=== PATIENT | male | born 1960 | race Caucasian/White ===

== ENCOUNTER 2024-12-23 07:58 | Inpatient (IN) | payer OTHER ==
[~2024-12-23] VITALS: Ht 165.1 cm; Wt 64.1 kg
[2024-12-23] VITALS (24 sets, daily range): BP systolic 69–104; BP diastolic 49–80
[2024-12-23] MEDS ORDERED: NS 1,000 ML IV SCH (08:30)
[2024-12-23] MEDS ORDERED: Ondansetron HCl 2 MG / ML 2ML Vial IV ONE (08:30)
[2024-12-23] MEDS ORDERED: Folic Acid 1 MG TAB PO ONE (08:30)
[2024-12-23 08:40] LABS: BASOPHILS ABSOLUTE AUTO 0.01 K/mm3 (0.00-0.23); BASOPHILS PERCENT AUTO 0 % (0-2); EOSINOPHILS ABSOLUTE AUTO 0.03 K/mm3 (0.00-0.68); EOSINOPHILS PERCENT AUTO 0 % (0-6); Hematocrit 27.7 % (37.0-53.0); Hemoglobin 10.2 g/dL (13.5-17.5); IMMATURE GRAN ABSOLUTE AUTO 0.08 K/mm3 (0.00-0.10); IMMATURE GRAN PERCENT AUTO 1 % (0-1); LYMPHOCYTES ABSOLUTE AUTO 1.48 K/mm3 (0.84-5.20); LYMPHOCYTES PERCENT AUTO 13 % (21-46); MONOCYTES ABSOLUTE AUTO 0.49 K/mm3 (0.16-1.47); MONOCYTES PERCENT AUTO 4 % (4-13); Mean Corpuscular HGB Conc 36.8 g/dL (31.5-36.5); Mean Corpuscular Volume 85 fL (80-100); NEUTROPHILS ABSOLUTE AUTO 9.42 K/mm3 (1.96-9.15); NEUTROPHILS PERCENT AUTO 82 % (41-73); NRBC ABSOLUTE 0.10 K/mm3 (0.00-0.02); NRBC Auto 0.9 /100 WBC (0.0-0.2); Platelet Count 317 K/mm3 (150-400); RDW Coefficient Variation 14.1 % (11.7-14.2); RDW Standard Deviation 40.8 fL (35.1-46.3)
[2024-12-23 09:23] LABS: Ethanol (Alcohol), Blood, Med 5.0 mg/dL; Magnesium, Blood 1.4 mg/dL (1.6-2.4)
[2024-12-23 09:26] LABS: Alanine Aminotransfer (ALT/SGP 16.0 U/L (12-78); Albumin, Blood 2.1 g/dL (3.4-5.0); Albumin/Globulin Ratio 0.4 (0.8-1.8); Anion Gap 15.0 mmol/L (3-11); Aspartate Aminotrans (AST/SGOT 51.0 U/L (12-37); Bilirubin, Total 1.6 mg/dL (0.1-1.0); Blood Urea Nitrogen 10.0 mg/dL (8-24); CO2, Blood 31.0 mmol/L (21-32); Calcium, Blood 7.8 mg/dL (8.5-10.1); Chloride, Blood 71.0 mmol/L (98-108); Creatinine, Blood 0.45 mg/dL (0.60-1.20); Globulin, Blood 5.3 g/dL (2.2-4.0); Glucose, Blood 137.0 mg/dL (70-99); Phosphorus, Blood 2.8 mg/dL (2.5-4.9); Potassium, Blood 2.5 mmol/L (3.5-5.5); Sodium, Blood 114.0 mmol/L (136-145); Total Protein, Blood 7.4 g/dL (6.4-8.2)
[2024-12-23] MEDS ORDERED: Magnesium Sulf 2 GM/Water 50ML 50 ML IV ONE (10:00)
[2024-12-23] MEDS ORDERED: Diazepam 5 MG / ML 2ML SYR IV PRN (11:30)
[2024-12-23] MEDS ORDERED: Ondansetron HCl 2 MG / ML 2ML Vial IV PRN (11:30)
[2024-12-23 11:54] LABS: Prothrombin Time Results 14.0 Sec (9.7-11.5)
[2024-12-23] MEDS ORDERED: NS 500 ML IV SCH (15:10)
[2024-12-23 20:26] LABS: Potassium, Blood 2.9 mmol/L (3.5-5.5)
[2024-12-23 20:27] LABS: Sodium, Blood 118.0 mmol/L (136-145)
[2024-12-23 21:48] LABS: Anion Gap 7.0 mmol/L (3-11); Blood Urea Nitrogen 8.0 mg/dL (8-24); CO2, Blood 32.0 mmol/L (21-32); Calcium, Blood 7.3 mg/dL (8.5-10.1); Chloride, Blood 85.0 mmol/L (98-108); Creatinine, Blood 0.36 mg/dL (0.60-1.20); Glucose, Blood 122.0 mg/dL (70-99); Potassium, Blood 3.0 mmol/L (3.5-5.5); Sodium, Blood 121.0 mmol/L (136-145)
--- NOTE | 2024-12-23 22:30 | NUR ---
TRANSFERED GAVE REPORT TO MICKEY @1820 AND TRANSFERED PATIENT @2220 TO ROOM 311 ON MEDICAL FLOOR.
[2024-12-24] VITALS (37 sets, daily range): BP systolic 75–126; BP diastolic 52–88
[2024-12-24] MEDS ORDERED: D5W-1/2NS 1,000 ML IV SCH (00:10)
[2024-12-24 02:38] LABS: Anion Gap 8.0 mmol/L (3-11); Blood Urea Nitrogen 7.0 mg/dL (8-24); CO2, Blood 33.0 mmol/L (21-32); Calcium, Blood 7.1 mg/dL (8.5-10.1); Chloride, Blood 87.0 mmol/L (98-108); Creatinine, Blood 0.33 mg/dL (0.60-1.20); Glucose, Blood 157.0 mg/dL (70-99); Potassium, Blood 2.8 mmol/L (3.5-5.5); Sodium, Blood 125.0 mmol/L (136-145)
[2024-12-24] MEDS ORDERED: Potassium Chl 20MEQ/Water100ML 100 ML IV STA (03:29)
[2024-12-24 05:25] LABS: BASOPHILS ABSOLUTE AUTO 0.01 K/mm3 (0.00-0.23); BASOPHILS PERCENT AUTO 0 % (0-2); EOSINOPHILS ABSOLUTE AUTO 0.04 K/mm3 (0.00-0.68); EOSINOPHILS PERCENT AUTO 1 % (0-6); Hematocrit 24.2 % (37.0-53.0); Hemoglobin 8.4 g/dL (13.5-17.5); IMMATURE GRAN ABSOLUTE AUTO 0.02 K/mm3 (0.00-0.10); IMMATURE GRAN PERCENT AUTO 0 % (0-1); LYMPHOCYTES ABSOLUTE AUTO 1.63 K/mm3 (0.84-5.20); LYMPHOCYTES PERCENT AUTO 19 % (21-46); MONOCYTES ABSOLUTE AUTO 0.50 K/mm3 (0.16-1.47); MONOCYTES PERCENT AUTO 6 % (4-13); Mean Corpuscular HGB Conc 34.7 g/dL (31.5-36.5); NEUTROPHILS ABSOLUTE AUTO 6.58 K/mm3 (1.96-9.15); NEUTROPHILS PERCENT AUTO 75 % (41-73); NRBC ABSOLUTE 0.03 K/mm3 (0.00-0.02); NRBC Auto 0.3 /100 WBC (0.0-0.2); Platelet Count 217 K/mm3 (150-400); RDW Coefficient Variation 14.3 % (11.7-14.2); RDW Standard Deviation 43.4 fL (35.1-46.3)
[2024-12-24 05:35] LABS: Mean Corpuscular Volume 90 fL (80-100)
[2024-12-24 05:38] LABS: Alanine Aminotransfer (ALT/SGP 15.0 U/L (12-78); Albumin, Blood 1.5 g/dL (3.4-5.0); Albumin/Globulin Ratio 0.4 (0.8-1.8); Anion Gap 8.0 mmol/L (3-11); Aspartate Aminotrans (AST/SGOT 56.0 U/L (12-37); Bilirubin, Total 0.6 mg/dL (0.1-1.0); Blood Urea Nitrogen 7.0 mg/dL (8-24); CO2, Blood 28.0 mmol/L (21-32); Calcium, Blood 6.9 mg/dL (8.5-10.1); Chloride, Blood 89.0 mmol/L (98-108); Creatinine, Blood 0.31 mg/dL (0.60-1.20); Globulin, Blood 4.2 g/dL (2.2-4.0); Glucose, Blood 168.0 mg/dL (70-99); Potassium, Blood 3.4 mmol/L (3.5-5.5); Sodium, Blood 122.0 mmol/L (136-145); Total Protein, Blood 5.7 g/dL (6.4-8.2)
--- NOTE | 2024-12-24 05:45 | NUR ---
SHIFT SUMMARY PATIENT SLEPT THORUGH SHIFT. PATIENT NEEDS ENCOURAGEMENT AND REMINDERS TO DRINK FLUID AND REPOSITION HIMSELF. A&O X3 SLOW TO RESPONSED TO QUESTIONS ASKED BY NURSE. WEAK AND BED REST PATIENT DID NOT AMBULATE ON SHIFT. HR IN THE 70'S AND SBP 70-80'S WITH A MAP IN THE 60'S DR. VERNON AWARE WANTS MAP ABOVE 60 PATIENT HAS 2L OF O2 VIA NASAL CANULA ON WHEN SLEEPING. PATIENT HAS PUREWICK APPLIED HOOKED TO SUCTION, URINE IS SU COLORED. HAS RIGHT WRIST AND LEFT FOREARM IV'S. CALL LIGHT WITHIN REACH.
[2024-12-24] MEDS ORDERED: Enoxaparin 40 MG/0.4 ML SYR SC SCH (09:00)
[2024-12-24] MEDS ORDERED: Thiamine HCl 300 MG in NS 100 ML IV SCH (09:14)
[2024-12-24 09:42] LABS: Stool Occult Blood Guaiac 1 Neg (Neg)
[2024-12-24 10:28] LABS: Anion Gap 3.0 mmol/L (3-11); Blood Urea Nitrogen 6.0 mg/dL (8-24); CO2, Blood 32.0 mmol/L (21-32); Calcium, Blood 8.4 mg/dL (8.5-10.1); Chloride, Blood 89.0 mmol/L (98-108); Creatinine, Blood 0.39 mg/dL (0.60-1.20); Glucose, Blood 141.0 mg/dL (70-99); Magnesium, Blood 2.1 mg/dL (1.6-2.4); Potassium, Blood 3.4 mmol/L (3.5-5.5); Sodium, Blood 121.0 mmol/L (136-145)
--- NOTE | 2024-12-24 18:45 | NUR ---
Patient transfered to ICU status overnight due to low blood pressures. In review this morning Dr Schroeder transfered patient back to PCU status, Dr Schroeder accepts low blood pressure that patient is not presenting mental status changes with the accompanying reading. Patient was able to get OOB to chair with one staff assist, however, displayed weak core strength and weak stance. Patient encouraged to eat. Remains unsympomatic of S/S of withdrawal. 2 liters of LR ordered to address hypotension and hydration without risking rapid correction of sodium.
[2024-12-25] VITALS (11 sets, daily range): BP systolic 83–145; BP diastolic 56–91
--- NOTE | 2024-12-25 02:55 | NUR ---
PT TRANSFERED TP PCU 01. REPORT GIVEN TO [facility]. PT ALERT AND ORIENTED TO SELF, PERSON AND PLACE BUT FORGETFULL. NO C/O PAIN. CIWA SCORE 1. PT WAS BLADDER SCANNED AT 2100. BLADDER SCAN VOLUME WAS 170MLS. B/P SOFT, MAP GREATER THAN 65. ON RA SATTING GREATER THAN 94%.
[2024-12-25 03:33] LABS: BASOPHILS ABSOLUTE AUTO 0.05 K/mm3 (0.00-0.23); BASOPHILS PERCENT AUTO 1 % (0-2); EOSINOPHILS ABSOLUTE AUTO 0.15 K/mm3 (0.00-0.68); EOSINOPHILS PERCENT AUTO 1 % (0-6); Hematocrit 26.5 % (37.0-53.0); Hemoglobin 8.8 g/dL (13.5-17.5); IMMATURE GRAN ABSOLUTE AUTO 0.08 K/mm3 (0.00-0.10); IMMATURE GRAN PERCENT AUTO 1 % (0-1); LYMPHOCYTES ABSOLUTE AUTO 2.85 K/mm3 (0.84-5.20); LYMPHOCYTES PERCENT AUTO 26 % (21-46); MONOCYTES ABSOLUTE AUTO 0.71 K/mm3 (0.16-1.47); MONOCYTES PERCENT AUTO 6 % (4-13); Mean Corpuscular HGB Conc 33.2 g/dL (31.5-36.5); Mean Corpuscular Volume 94 fL (80-100); NEUTROPHILS ABSOLUTE AUTO 7.24 K/mm3 (1.96-9.15); NEUTROPHILS PERCENT AUTO 65 % (41-73); NRBC ABSOLUTE 0.03 K/mm3 (0.00-0.02); NRBC Auto 0.3 /100 WBC (0.0-0.2); Platelet Count 233 K/mm3 (150-400); RDW Coefficient Variation 14.6 % (11.7-14.2); RDW Standard Deviation 47.2 fL (35.1-46.3)
[2024-12-25 03:56] LABS: Alanine Aminotransfer (ALT/SGP 16.0 U/L (12-78); Albumin, Blood 1.7 g/dL (3.4-5.0); Albumin/Globulin Ratio 0.4 (0.8-1.8); Anion Gap 6.0 mmol/L (3-11); Aspartate Aminotrans (AST/SGOT 59.0 U/L (12-37); Bilirubin, Total 0.5 mg/dL (0.1-1.0); Blood Urea Nitrogen 4.0 mg/dL (8-24); CO2, Blood 30.0 mmol/L (21-32); Calcium, Blood 8.2 mg/dL (8.5-10.1); Chloride, Blood 95.0 mmol/L (98-108); Creatinine, Blood 0.31 mg/dL (0.60-1.20); Globulin, Blood 4.3 g/dL (2.2-4.0); Glucose, Blood 124.0 mg/dL (70-99); Potassium, Blood 4.3 mmol/L (3.5-5.5); Sodium, Blood 127.0 mmol/L (136-145); Total Protein, Blood 6.0 g/dL (6.4-8.2)
--- NOTE | 2024-12-25 04:31 | NUR ---
SHIFT SUMMARY. PT ARRIVED ON UNIT @ ~0235. AOX3, COOPERATIVE, ABLE TO MAKE NEEDS KNOWN. HAS BEEN RESTING COMFORTABLY SINCE ARRIVAL. HAS HAD 2 INCONTINENT VOIDS SINCE ARRIVAL, BLADDER SCAN REVEALED VOLUME OF 250 MLS. FLUIDS INFUSING SINCE ARRIVAL. VITALS STABLE, MAP >65 THUS FAR, RUNNING SINUS ON TELE WITH RATE IN THE 70s-80s. HAS BEEN ON ROOM AIR SINCE ARRIVAL. BEDREST. DENIED PAIN. VERY SLOW TO RESPOND, SOMEWHAT FORGETFUL BUT ABLE TO CARRY APPROPRIATE CONVERSATION AND FOLLOW COMMANDS APPROPRIATELY. BED LOCKED IN LOWEST POSITION. BED ALARM ACTIVE FOR SAFETY. CALL LIGHT WITHIN REACH.
--- NOTE | 2024-12-25 11:27 | NUR ---
MID SHIFT UPDATE PATIENT WAS INITIALLY IN BED THIS MORNING ASLEEP. HE WAS AROUSABLE TO VERBAL STIMULATION. PATIENT WAS NOT VERY TALKATIVE AND WAITED SEVERAL SECONDS TO RESPOND TO ANY QUESTIONS, SOMETIMES NOT ANSWERING AT ALL. PATIENT WAS ABLE TO TAKE ALL HIS MEDICATIONS WITH WATER. NO COMPLAINTS OF PAIN OR RESP DISTRESS. VITALS STABLE. PATIENT WORKED WITH OCCUPATIONAL THERAPY AND WAS ABLE TO BRUSH HIS OWN TEETH. PATIENT TRANSFERRED FROM BED TO CHAIR WITH CHAIR ALARM IN PLACE. PATIENT WAS ABLE TO VOID INTO BSC APPROX 200ML SU URINE. PATIENT IS VERY UNSTEADY ON HIS FEET, WHICH SEEMED D/T BALANCE ISSUES. PATIENT COOPERATIVE WITH ALL CARE. PATIENT'S BROTHER, NAVDEEP SOLOMON, VISTED PATIENT. HE IS FROM [place], PHONE [phone] / [phone]. HE WAS SUPPORTIVE AND ENCOURAGING TOWARDS HIS BROTHER AND LEFT AFTER ABOUT 45 MINUTES. HE REPORTS PATIENT WAS AMBULATORY AND INDEPENDENT A FEW MONTHS AGO LAST TIME HE SAW HIM. THEIR MOTHER RECENTLY, AND THE PATIENT LIVED WITH HER IN A MOBILE HOME. HE BELIEVES THAT JOEY HAS BEEN "DRINKING HIMSELF TO ." HE SAYS HE HAS NEVER SEEN HIM IN THIS CONDITION AND HIS MENTAL STATUS IS NOT HIS BASELINE. DR CABRAL EVALUATED PATIENT, CHANGED TO MEDICAL STATUS WITHOUT TELE. PATIENT STILL IN BED AND TAKING A NAP.
--- NOTE | 2024-12-25 15:56 | NUR ---
PATIENT HAS VOIDED TOTAL OF 50-60ML URINE. BLADDER SCAN DONE - 338ML. PATIENT HAS ONLY WANTED TO DRINK SMALL SIPS OF WATER THIS SHIFT. PROVIDER NOTIFIED. RECEIVED ORDER TO START LR @ 75ML/HR AND TAMSULOSIN 0.4MG PO AT BEDTIME.
--- NOTE | 2024-12-25 16:15 | NUR ---
TRANSFER NOTE REPORT GIVEN TO CALIXTO RN ON MEDICAL FLOOR. PATIENT TRANSFERRED TO 337. MENTAL STATUS UNCHANGED. NO SIGNIFICANT EVENTS OCCURED THIS SHIFT. PATIENT REMAINED DROWSY MOST OF SHIFT BUT WAS RESPONSIVE TO VERBAL STIMULI. NO REPORTS OF PAIN OR SOB.
--- NOTE | 2024-12-25 16:53 | NUR ---
TRANSFER NOTE PT TRANSFERRED FROM PCU, REPORT RECEIVED FROM ELYSE WILDE. FLUIDS STARTED PER THE EMAR. PT HAD AN INCONTINENT VOID. BRIEF IN PLACE AND CHANGED NEEDED. CALL LIGHT PUT WITHIN REACH. BA ON AND IN THE LOWEST POSITION. FAMILY IS CURRENTLY AT THE BS.
[2024-12-26 04:19] VITALS: BP 111/77
--- NOTE | 2024-12-26 06:37 | NUR ---
AWAKE BUT SLIGHTLY CONFUSED AND SLOW SPEECH. FREQUENT URINATION AND INCONTINENT AND RETAINING APPROXIMATELY AROUND 300 ML EVERY AFTER URINATION. VSS. CONTINUED IV FLUIDS AND CONTINUAL TWIN-CARE. REMOVED TELE LEADS AT ONE POINT. AWAKE MOST OF THE NIGHT STARING AT THE TELEVISION. NOT DRINKING ADEQUATELY AND HAS VERY BAD ODOR ON BREATHE EVEN AFTER MOUTH CARE.
[2024-12-26 07:42] VITALS: BP 104/80
[2024-12-26 08:34] LABS: Anion Gap 8.0 mmol/L (3-11); Blood Urea Nitrogen 3.0 mg/dL (8-24); CO2, Blood 25.0 mmol/L (21-32); Calcium, Blood 8.0 mg/dL (8.5-10.1); Chloride, Blood 101.0 mmol/L (98-108); Creatinine, Blood 0.36 mg/dL (0.60-1.20); Glucose, Blood 100.0 mg/dL (70-99); Potassium, Blood 4.3 mmol/L (3.5-5.5); Sodium, Blood 130.0 mmol/L (136-145)
[2024-12-26 11:51] VITALS: BP 99/72
[2024-12-26 15:56] VITALS: BP 127/94
[2024-12-26 17:38] VITALS: BP 126/88
--- NOTE | 2024-12-26 19:13 | NUR ---
SHIFT SUMMARY PT IS A/OX3, CONFUSION TO PERSON AND CURRENT SITUATION AT TIMES. FORGETFUL AND IMPULSIVE. NO ACUTE CHANGES THROUGHOUT THIS SHIFT. PT REFUSING ALL MEALS THIS SHIFT. PT UP TO CHAIR WITH 1 PERSON ASSIST AND GAIT BELT. ON TELE RUNNING NORMAL SINUS RYTHYM IN THE 80'S.
[2024-12-26 20:45] VITALS: BP 115/84
[2024-12-27] VITALS (7 sets, daily range): BP systolic 97–132; BP diastolic 82–93
--- NOTE | 2024-12-27 06:31 | NUR ---
SUMMARY VSS, STILL HAS MILD CONFUSION AND SLOW SPEECH. NO SIGNIFICANT CHANGES FROM YESTERDAY. HIGHLY INCONTINENT AND RETAINING SAME % OF RESIDUAL COMPARED TO PREV DAYS. CONTINUED HYDRATION, IVF THERAPY AND ORAL CARE. SLEPT WELL W/O ANY CONCERN.
[2024-12-27] MEDS ORDERED: Folic Acid 1 MG TAB PO SCH (09:00)
[2024-12-27 09:01] LABS: Anion Gap 7.0 mmol/L (3-11); Blood Urea Nitrogen 6.0 mg/dL (8-24); CO2, Blood 24.0 mmol/L (21-32); Calcium, Blood 8.2 mg/dL (8.5-10.1); Chloride, Blood 106.0 mmol/L (98-108); Creatinine, Blood 0.37 mg/dL (0.60-1.20); Glucose, Blood 113.0 mg/dL (70-99); Potassium, Blood 3.9 mmol/L (3.5-5.5); Sodium, Blood 133.0 mmol/L (136-145)
--- NOTE | 2024-12-27 18:04 | NUR ---
SHIFT SUMMARY PT IS A/OX3, FORGETFUL AND IMPULSIVE AT TIMES. UP WITH 1 PERSON ASSIST TO CHAIR. NO ACUTE CHANGES THROUGHOUT THIS SHIFT. PT ORAL INTAKE ENCOURAGE THROUGHOUT THIS SHIFT. TOLERATING ENSURES. LR RUNNING @ 75 ML/HR. PT IS INCONT OF BLADDER, ATTENDS CHANGED NEEDED. AWAITING SNF ACCEPTANCE.
[2024-12-28 04:09] VITALS: BP 125/90
[2024-12-28 06:07] LABS: Anion Gap 10.0 mmol/L (3-11); Blood Urea Nitrogen 6.0 mg/dL (8-24); CO2, Blood 20.0 mmol/L (21-32); Calcium, Blood 8.4 mg/dL (8.5-10.1); Chloride, Blood 109.0 mmol/L (98-108); Creatinine, Blood 0.36 mg/dL (0.60-1.20); Glucose, Blood 112.0 mg/dL (70-99); Potassium, Blood 3.8 mmol/L (3.5-5.5); Sodium, Blood 135.0 mmol/L (136-145)
--- NOTE | 2024-12-28 06:36 | NUR ---
SUMMARY NO SIGNIFICANT CHANGES FROM FEW DAYS AGO. AWAIT FINAL PLAN FOR SNF. STILL INCONTINENT AND SLOW SPEECH. FINISHED IV HYDRATION. NO OTHER CONCERN.
[2024-12-28 07:31] VITALS: BP 112/85
[2024-12-28 11:43] VITALS: BP 98/81
--- NOTE | 2024-12-28 15:28 | NUR ---
CALLED RE PT DECLINING. FTT. ORDERS FOR PALIATIVE CARE. THEY CAN TALK WITH FAMILY.
--- NOTE | 2024-12-28 15:31 | NUR ---
CALLED [facility] IN PALIATIVE CARE. NOTIFIED
[2024-12-28 16:08] VITALS: BP 132/91
[2024-12-28 17:39] VITALS: BP 93/73
--- NOTE | 2024-12-28 18:55 | NUR ---
pt pleasant most of day. has not been eating. did get him to drink total of two ensure today. does awaken, a/o x3, but sleeping most of day. discussed ftt with dr main. orders for paliative care called in by this rn. had b/m today no other concerns noted. bed in low poosition, call lite in reach, calls approp
[2024-12-28 19:35] VITALS: BP 114/77
[2024-12-29 02:51] VITALS: BP 113/79
--- NOTE | 2024-12-29 04:30 | NUR ---
SHIFT SUMMARY PATIENT HAD NO ACUTE CHANGES. ALERT ORIENTED AND SLOW TO RESPOND. DENIES CHEST PAIN, SOB, AND N/V. VSS/AFEBRILE. NEW PIV PLACED. INCONTINENT OF BLADDER. SLEPT MOST OF THE SHIFT. CALL LIGHT IN REACH. BED IN LOWEST POSITION. WILL CONTINUE TO MONITOR UNTIL DAY SHIFT NURSE ASSUMES CARE.
[2024-12-29 07:45] VITALS: BP 97/69
[2024-12-29 11:27] VITALS: BP 118/87
[2024-12-29 13:26] VITALS: BP 97/66
[2024-12-29 14:57] VITALS: BP 127/90
--- NOTE | 2024-12-29 19:30 | NUR ---
SHIFT SUMMARY CLIENT IS AOX3-4. REMAINS SLOW TO RESPOND, BUT HAS IMPROVED SINCE MORNING. MEDICATION COMPLIANT. BLOOD PRESSURE CONTINUES TO TREND LOW. REMAINS ON TELE, SR @ 98. BED IS IN LOW POSITION AND CALL LIGHT IS WITHIN REACH.
[2024-12-29 19:37] VITALS: BP 141/88
[2024-12-30 00:11] VITALS: BP 120/83
--- NOTE | 2024-12-30 02:55 | NUR ---
SHIFT SUMMARY NO ACUTE EVENTS DURING THIS SHIFT. VSS, TELE: SR@96. INCONTINENT OF URINE. ATTEMPT TO EXIT THE BED, BED ALARM FOR SAFETY. REORIENTED. A/O X2-3 SLOW RESPONSES, FLAT AFFECT. COOPERATIVE WITH CARE. BED AT THE LOWEST POSITION, CALL LIGHT W/I REACH. PT IS ABLE TO MAKE HIS NEEDS KNOWN.
[2024-12-30 05:05] VITALS: BP 118/76
[2024-12-30 06:58] LABS: Anion Gap 9.0 mmol/L (3-11); Blood Urea Nitrogen 12.0 mg/dL (8-24); CO2, Blood 21.0 mmol/L (21-32); Calcium, Blood 8.4 mg/dL (8.5-10.1); Chloride, Blood 112.0 mmol/L (98-108); Creatinine, Blood 0.48 mg/dL (0.60-1.20); Glucose, Blood 98.0 mg/dL (70-99); Potassium, Blood 3.9 mmol/L (3.5-5.5); Sodium, Blood 138.0 mmol/L (136-145)
[2024-12-30 08:38] VITALS: BP 111/78
[2024-12-30 11:46] VITALS: BP 125/89
--- NOTE | 2024-12-30 12:06 | NUR ---
FAMILY CONTACT UPDATED IN CHART WITH VERBAL PERMISSION, RN SPOKE WITH PTS AUNT MICKEY AND SISTER JENNIFER TODAY ABOUT PT CONDITION. PT AUNT MICKEY PLANS TO LEAVE [facility] TO COME AND VISIT THE PATIENT. SISTER, JENNIFER, CONCERNED ABOUT PT WELL BEING AND THE PLAN AFTER REHAB PT SEEMS TO NOT BE SAFE TO LIFE ON HIS OWN, WELL IS NOT EATING AND HAS VERBALIZED TO HER THAT "HE IS DONE". PT HAS WORKED WITH THERAPY BUT IS UNWILLING TO PARTICIPATE IN THERAPIES ON HIS OWN. PT ORIENTED. DR. CABRAL NOTIFIED OF CONCERNS AND SPOKE WITH DAUGHTER, TRAVIS ON THE PHONE.
[2024-12-30 18:00] VITALS: BP 145/92
--- NOTE | 2024-12-30 18:23 | NUR ---
SHIFT SUMMARY PT AGREEABLE TO WORKING WITH PHYSICAL THERAPY TODAY AND GOT UP TO CHAIR AFTER BREAKFAST. PT REFUSED BREAKFAST AND ENSURE. PT ATE APPROX 10 BITES OF LUNCH AND DRANK HALF AN ENSURE. PT INCONT IN BED AND SOILED THIS LININ, PT ENCOURAGED TO GET INTO THE SHOWER AND WAS AGREEABLE AFTER SOME ENCOURAGMENT. PT VISITED BY DAUGHTER AND FRIEND TODAY. BOTH WERE UPDATED ON PT PLAN OF CARE AND CONCERNS FOR HIM LACK OF APPETITE. PALLIATIVE CARE FOLLOWING. VS REVIEWED. AFTERNOON MIDODRINE HELD DUE TO SBP IN THE 140S. PT DENIES OTHER NEEDS AT THIS TIME. CALL LIGHT IN REACH. DINNER CURRENTLY SITTING IN FRONT OF THE PATIENT.
[2024-12-30 20:05] VITALS: BP 141/94
--- NOTE | 2024-12-30 22:34 | NUR ---
I HAVE ASSESSED TELE RHYTHM AND AGREE WITH TELE TECK PT IS IN SR RATE 90'S.
[2024-12-31 00:03] VITALS: BP 135/88
--- NOTE | 2024-12-31 02:41 | NUR ---
SHIFT SUMMARY NO ACUTE EVENTS DURING THIS SHIFT. PT REQUESTED TO USE THE RESTROOM FOR BM TWICE DURING THE NIGHT. 1-PERSON ASSIST WITH GB AND FWW. STEADY GAIT, WEAK LE'S. PULLUPS IN PLACE, INCONTINENT OF URINE. PT IS A/O X2-3, SLOW RESPONSES. COOPERATIVE WITH CARE. TELE: SINUS TACH @110, DENIES CP/PRESSURE. VSS. NO PO INTAKE DURING THIS SHIFT. ENCOURAGED TO HAVE A SNACK OR ENSURE. PLAN IS FOR SNF POSSIBLY TODAY. BED AT THE LOWEST POSITION, CALL LIGHT WITHIN REACH. PT IS ABLE TO MAKE HIS NEEDS KNOWN.
[2024-12-31 04:22] VITALS: BP 138/92
[2024-12-31 08:29] VITALS: BP 134/89
[2024-12-31 12:37] VITALS: BP 131/95
[2024-12-31 17:32] VITALS: BP 144/93
--- NOTE | 2024-12-31 19:03 | NUR ---
SHIFT SUMMARY PT SPOKE WITH CARE MANAGMENT ABOUT PLAN FOR DC. AGENCY SALES REPRESENTATIVE WORKING ON REFERRALS TO [facility]ULT [facility]. FAMILY LOOKING INTO CAREGIVING OPTIONS FOR THE PATIENT HOME. NO OTHER ACUTE CHANGES IN ASSESSMENT AT THIS TIME. TELE DCED TODAY. PT ATTEMPTING TO EAT MORE AT MEALS, BUT INTAKE IS STILL VERY LOW. VS REVEIWED. CALL LIGHT IN REACH. DENIES OTHER NEEDS AT THIS TIME.
[2024-12-31 19:33] VITALS: BP 145/93
--- NOTE | 2024-12-31 21:46 | NUR ---
ASSESSMENT REVEALED IV PULLED OUT. WHEN NURSE VOICED TO PLACE ANOTHER, HE REFUSED. NOTIFIED. MD SAID IF HE REFUSED HE REFUSED, CANT PLACE ONE IF PT REFUSES. CALL LIGHT IN REACH.
--- NOTE | 2025-01-01 04:39 | NUR ---
FINANCE INSURANCE MANAGER SUMMARY VSS. A/O X 3-4 SLOW SPEECH AND SLOW TO RESPOND. PULLED OUT IV, REFUSED TO ALLOW ANOTHER IV PLACED. NOTIFIED. POOR INTAKE OF DINNER, ENCOURAGED TO DRINK ENSURE, HE DID. LUNG SOUNDS DIMINISHED. RESPS EVEN, OCCASIONAL COUGH, VOICED NO PROBLEM AT THE TIME. INCONT OF URINE X 1. PT AND BED CLEANED. ABLE TO REPOSITION SELF WITHOUT ASSIST. BUT IF/WHEN OOB, REQUIRES ONE PERSON ASSIST. BED ALARM ON, CALL LIGHT IN REACH, RAILS UP X 2 AND BED IN LOW POSITION FOR SAFETY. HAS BEEN RESTING QUIETLY MOST OF THE SHIFT. WILL CONT TO MONITOR.
[2025-01-01 06:05] VITALS: BP 149/95
[2025-01-01 07:34] VITALS: BP 123/79
[2025-01-01] MEDS ORDERED: MIDO5 PO (13:47)
[2025-01-01] MEDS ORDERED: MIRT15ST PO (13:48)
[2025-01-01] MEDS ORDERED: MULVITA PO (13:49)
--- NOTE | 2025-01-01 16:16 | NUR ---
Patient discharged home with referral to home health. All belongings returned to patient and room checked prior to dischage. Medication/education/instructions discussed with patient and friend and all questions answered. Patient transported via wheelchair to entrance with friend. Medication scripts faxed to [facility] per patient preference.
== END 2025-01-01 14:56 | disposition home health service (06) | DRG 640 ==
LOC: ER 07:58 → PCU 11:23 → MEDS 11:23 → ERHOLD 11:23 → ICUE 11:23 → PCU 12-25 02:33 → MEDS 12-25 16:23
PROVIDERS: Emergency Medicine; Nurse Practitioner Acute Care; Student in an Organized Health Care Education/Training Program; ADMIT Internal Medicine
DX: E87.1 Hypo-osmolality and hyponatremia (principal); E43 Unspecified severe protein-calorie malnutrition; R65.11 Systemic inflammatory response syndrome (SIRS) of non-infectious origin with acute organ dysfunction; F10.239 Alcohol dependence with withdrawal, unspecified; R64 Cachexia; E87.21 Acute metabolic acidosis; K70.30 Alcoholic cirrhosis of liver without ascites; E87.6 Hypokalemia; E83.42 Hypomagnesemia; Z66 Do not resuscitate; E86.0 Dehydration; D63.8 Anemia in other chronic diseases classified elsewhere; I95.89 Other hypotension; E86.1 Hypovolemia; Y90.0 Blood alcohol level of less than 20 mg/100 ml; D50.9 Iron deficiency anemia, unspecified; E87.8 Other disorders of electrolyte and fluid balance, not elsewhere classified; F32.A Depression, unspecified; R32 Unspecified urinary incontinence; Z60.2 Problems related to living alone; Z71.41 Alcohol abuse counseling and surveillance of alcoholic; Z68.25 Body mass index [BMI] 25.0-25.9, adult
CPT/HCPCS: 36415; 51701; 71045; 74177; 80048; 80053; 80320; 82010; 82140; 82272; 82330; 82607; 82746; 82947; 83605; 83735; 83930; 84100; 84132; 84295; 84300; 84443; 85025; 85610; 93005; 93010; 94762; 96365-59; 96375-59; 97110; 97116; 97163; 97165; 97530; 97535; 99285-25; A9270; J0612; J1650; J2405; J3411; J3475; J3480; J7030; J7040; J7042; J7050; J7120; Q9967